=== PATIENT | female | born 1975 | race Caucasian/White ===

== ENCOUNTER 2017-06-27 16:42 | Outpatient (CLI) | payer OTHER ==
--- NOTE | 2017-06-28 00:26 | XRAY Report ---
EXAM: RIGHT FOOT RADIOGRAPHY EXAM DATE: 06/27/2017 04:51 PM. CLINICAL HISTORY: NAVICULAR POSTERIOR TIBIALIS TENDON PAIN. Pain started 2 months ago. COMPARISON: None. TECHNIQUE: 3 views. FINDINGS: Bones: Accessory navicular bone is noted. Irregular sclerotic margins are seen at the junction of the navicular bone and accessory navicular bone, could represent acute or chronic inflammation. An MR of the right foot without and with contrast could be obtained to further evaluate. No evidence for acut e fracture. Plantar calcaneal bone spur. Joints: No subluxation. No significant degenerative joint disease. Soft Tissues: Unremarkable. IMPRESSION: 1. Accessory navicular bone is noted. Irregular sclerotic margins are seen at the junction of the magan icular bone and accessory navicular bone, could represent acute or chronic inflammation. An MR of the right foot without and with contrast could be obtained to further evaluate. [facility] Referring Provider Line: [phone] SITE ID: [id number]
== END 2017-06-27 16:43 | disposition home or self-care (01) ==
LOC: DI 16:42
PROVIDERS: ATTEND Podiatrist
DX: M79.671 Pain in right foot (principal)

== ENCOUNTER 2021-03-28 18:56 | Outpatient (CLI) | payer OTHER | END 2021-03-28 18:57 | disposition critical access hospital (66) | LOC: EMS 18:56 | DX: Z04.1 Encounter for examination and observation following transport accident (principal); M54.2 Cervicalgia | CPT/HCPCS: A0425; A0429 ==

== ENCOUNTER 2021-03-28 19:06 | Emergency (ER) | payer OTHER ==
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
[2021-03-28 20:59] VITALS: BP 133/72
== END 2021-03-28 20:57 | disposition home or self-care (01) ==
LOC: EDUNIT# → ED 19:06
DX: S20.312A Abrasion of left front wall of thorax, initial encounter (principal); S16.1XXA Strain of muscle, fascia and tendon at neck level, initial encounter; V89.2XXA Person injured in unspecified motor-vehicle accident, traffic, initial encounter; Y93.89 Activity, other specified; Y92.410 Unspecified street and highway as the place of occurrence of the external cause
CPT/HCPCS: 99282; 99284